=== PATIENT | male | born 1995 | race Caucasian/White ===

== ENCOUNTER 2020-11-06 12:31 | Emergency (ER) | payer MEDICAID ==
[~2020-11-06] VITALS: Ht 177.8 cm; Wt 65.9 kg
[2020-11-06] MEDS ORDERED: normal saline 1000ML IV soln IVB ONE (12:35)
[2020-11-06] MEDS ORDERED: ondansetron/PF 4mg/2ml inj IV ONE (12:35)
[2020-11-06] MEDS ORDERED: iohexol 300mg/ml 100ml inj. ONE ×2 (12:51→13:51)
--- NOTE | 2020-11-06 13:11 | NUR ---
C-COLLER PLACED IN TRIAGE
[2020-11-06 13:17] LABS: BASOPHILS # (AUTO) 0.1 X10'3 (0-0.2); BASOPHILS % (AUTO) 0.8 % (0-1); EOSINOPHILS % (AUTO) 0.6 % (0-6); HEMATOCRIT 44.8 % (42.0-52.0); HEMOGLOBIN 15.1 g/dl (14.0-17.9); LYMPHOCYTES # (AUTO) 1.5 X10'3 (1.1-4.8); LYMPHOCYTES % (AUTO) 20.2 % (21-51); MEAN CORPUSCULAR HEMOGLOBIN 28.2 PG (27.0-31.0); MEAN CORPUSCULAR HGB CONC 33.7 g/dL (33.0-36.5); MEAN CORPUSCULAR VOLUME 83.6 FL (78-98); MEAN PLATELET VOLUME 9.1 FL (7.4-10.4); MONOCYTES # (AUTO) 0.4 X10'3 (0-0.9); MONOCYTES % (AUTO) 5.6 % (2-12); NEUTROPHILS # (AUTO) 5.3 X10'3 (1.8-7.7); NEUTROPHILS % (AUTO) 72.8 % (42-75); PLATELET COUNT 203 X10'3 (140-440); RED BLOOD COUNT 5.36 X10'6 (4.70-6.10); RED CELL DISTRIBUTION WIDTH 13.1 % (11.5-14.5); WHITE BLOOD COUNT 7.3 X10'3 (4.5-11.0)
[2020-11-06 13:30] LABS: ALANINE AMINOTRANSFERASE 16 U/L (12-78); ALBUMIN 4.4 G/DL (3.4-5.0); ALBUMIN/GLOBULIN RATIO 1.3 (1.1-1.5); ALKALINE PHOSPHATASE 50 IU/L (46-116); ANION GAP 9 (8-16); ASPARTATE AMINO TRANSFERASE 11 U/L (10-37); BILIRUBIN,TOTAL 1.4 MG/DL (0.1-1.0); BLOOD UREA NITROGEN 8 MG/DL (7-18); CALCIUM 8.7 MG/DL (8.5-10.1); CHLORIDE 106 MMOL/L (99-107); GLUCOSE 101 MG/DL (70-104); POTASSIUM 3.8 MMOL/L (3.5-5.1); SODIUM 142 MMOL/L (135-145); TOTAL CARBON DIOXIDE 26.6 MMOL/L (24-32); TOTAL PROTEIN 7.9 G/DL (6.4-8.2); eGFR 90 ML/MIN
--- NOTE | 2020-11-06 13:33 | NUR ---
TO CT SCAN VIA WHEELCHAIR IN STABLE CONDITION
--- NOTE | 2020-11-06 14:15 | NUR ---
Patient had returned from CT and [employer] came to me taking that patient initial PIV was placed in an artery and IV contrast was pushed through it, patient began having severe burning and a contraction to the right arm. I educated patient on placement of the IV and I pulled out the IV location in the right AC. I notified Nadia YARBROUGH as well as, AMY Bedolla regarding misplacement of IV. I will be contacting pharmacist for further direction and care of site and patient.
--- NOTE | 2020-11-06 14:18 | NUR ---
Spoke with Boogie, [facility] pharmacist, he asked if PIV site had extravasated. I stated to him that the [facility] PIV site had no reddness, swelling, and/or irritation per patient. Boogie stated that he did not believe there was anything that needed to be done at this point for the patient to just observe site. Chioma REYES notified regarding that, as well as, primary RN Jarrell kirkland.
[2020-11-06 14:25] VITALS: BP 120/78
[2020-11-06] MEDS ORDERED: ONDA4TAB6 PO (14:33)
== END 2020-11-06 14:54 | disposition home or self-care (01) ==
LOC: ER 12:32
DX: F07.81 Postconcussional syndrome (principal); R10.11 Right upper quadrant pain; R10.13 Epigastric pain; R42 Dizziness and giddiness; R11.2 Nausea with vomiting, unspecified; R51.9 Headache, unspecified; R53.83 Other fatigue; Z79.899 Other long term (current) drug therapy
CPT/HCPCS: 36415; 70450; 71045; 72125; 74177; 80053; 85025; 85610; 86885; 86900; 86901; 96361; 96374; 99285; J2405; J7030; Q9967